=== PATIENT | male | born 1975 | race Caucasian/White ===

== ENCOUNTER 2016-09-21 23:21 | Emergency (ER) | payer OTHER ==
[~2016-09-21] VITALS: Ht 167.6 cm; Wt 81.1 kg
[2016-09-22 00:29] LABS: HEMOGLOBIN 17.7 g/dL (13.7-18.0)
[2016-09-22] MEDS ORDERED: SODIUM CHLORIDE 0.9% 1,000ML IVBOLUS ONE (00:30)
[2016-09-22] MEDS ORDERED: SODIUM CHLORIDE FLUSH 10ML SYR IVF ONE (00:30)
[2016-09-22 00:39] LABS: ASPARTATE AMINO TRANSFERASE 78 U/L (15-37); BLOOD UREA NITROGEN 7 mg/dL (7-18)
[2016-09-22 01:10] LABS: DAU SCREEN DISCLAIMER
[2016-09-22 02:20] VITALS: BP 130/75
== END 2016-09-22 02:24 | disposition home or self-care (01) ==
LOC: ED 23:59
DX: F10.229 Alcohol dependence with intoxication, unspecified (principal); K85.20 Alcohol induced acute pancreatitis without necrosis or infection; F14.10 Cocaine abuse, uncomplicated; F32.9 Major depressive disorder, single episode, unspecified; Y90.9 Presence of alcohol in blood, level not specified; Z79.899 Other long term (current) drug therapy
CPT/HCPCS: 36415; 80053; 80307; 81003; 83690; 83735; 84443; 85025; 96360; 99284; J7030

== ENCOUNTER 2018-12-17 15:39 | Inpatient (IN) | payer OTHER ==
[~2018-12-17] VITALS: Ht 167.6 cm; Wt 79.5 kg
[2018-12-17] MEDS ORDERED: ONDANSETRON ODT 4 MG PO ONE (16:00)
[2018-12-17 16:17] LABS: BASOPHILS # (AUTO) 0.03 x10^3/uL (0-0.1); BASOPHILS % (AUTO) 1 % (0-1); EOSINOPHILS # (AUTO) 0.02 x10^3/uL (0-0.4); EOSINOPHILS % (AUTO) 0 % (1-7); LYMPHOCYTES # (AUTO) 1.52 x10^3/uL (1-3.4); LYMPHOCYTES % (AUTO) 22 % (22-44); MD NO; MEAN CORPUSCULAR HEMOGLOBIN 34.8 pg (27.5-34.5); MEAN CORPUSCULAR HGB CONC 34.4 g/dL (33.2-36.2); MEAN CORPUSCULAR VOLUME 101.2 fL (81-97); MEAN PLATELET VOLUME 7.8 fL (7.4-10.4); MONOCYTES # (AUTO) 0.59 x10^3/uL (0.2-0.8); MONOCYTES % (AUTO) 9 % (2-9); NEUTROPHILS # (AUTO) 4.75 x10^3/uL (1.8-6.8); NEUTROPHILS % (AUTO) 69 % (42-75); PLATELET COUNT 141 x10^3/uL (130-400); RED BLOOD COUNT 5.48 x10^6/uL (4.38-5.82); RED CELL DISTRIBUTION WIDTH 13.1 % (9.4-14.8)
[2018-12-17 16:26] LABS: ALANINE AMINOTRANSFERASE 89 U/L (12-78); ANION GAP 14 mmol/L (5-15); CALCIUM 8.1 mg/dL (8.5-10.1); CHLORIDE 96 mmol/L (98-107); CREATININE 0.79 mg/dL (0.7-1.3)
[2018-12-17 16:30] LABS: ALKALINE PHOSPHATASE 121 U/L (45-117); BILIRUBIN,TOTAL 2.9 mg/dL (0.2-1.0); TOTAL PROTEIN 7.3 g/dL (6.4-8.2); TROPONIN I < 0.015 ng/mL (0.000-0.045)
--- NOTE | 2018-12-17 18:50 | NUR ---
PT TO ED FOR GENERAL WEAKNESS AND DECREASED APPETITE X 10 DAYS. PT STATES HE TRIED TO QUIT DRINKING BT THEN DRAK 3 BEERS TODAY IN AN UNSUCCESSFUL ATTEMPT TO INCREASE HIS APPETITE. PT CONNECTED TO MONITORS. VSS. PIT ORDERS RECEIVIED. LABS DRAWN. AWAITING RESULTS.
[2018-12-17] MEDS ORDERED: ONDANSETRON ODT 4 MG ONE (18:56)
--- NOTE | 2018-12-17 19:05 | NUR ---
PT UP SELF WITH STEADY GAIT TO FOR URINE SAMPLE. URINE COLLECTED AND SENT. VSS. PT RESTING IN ROOM. WARM BLANKET PROVIDED FOR COMFORT. AWAITING RESULTS.
[2018-12-17] MEDS ORDERED: SODIUM CHLORIDE 0.9% 1,000 ML IV ONE ×2 (19:22→21:00)
[2018-12-17 19:24] LABS: AMPHETAMINE SCREEN, URINE Negative (Negative); BARBITURATE SCREEN, URINE Negative (Negative); BENZODIAZEPINE SCREEN, URINE Negative (Negative); CANNABINOID SCREEN, URINE Negative (Negative); COCAINE SCREEN, URINE Negative (Negative); METHADONE SCREEN, URINE Negative (Negative); OPIATE SCREEN, URINE Negative (Negative)
[2018-12-17] MEDS ORDERED: SODIUM CHLORIDE FLUSH 10ML SYR IVF ONE (19:30)
[2018-12-17] MEDS ORDERED: LORazepam 2 MG/ML, 1ML IVPush ONE (19:30)
[2018-12-17] MEDS ORDERED: ONDANSETRON 2MG/ML, 2ML IVPush ONE (19:30)
[2018-12-17] MEDS ORDERED: SODIUM CHLORIDE 0.9% 1,000ML IVBOLUS ONE (19:30)
--- NOTE | 2018-12-17 19:32 | NUR ---
NEW ORDERS FOR MEDS AND IVF RECEIVED.
[2018-12-17] MEDS ORDERED: ONDANSETRON 2MG/ML, 2ML ONE (19:34)
[2018-12-17] MEDS ORDERED: LORazepam 2 MG/ML, 1ML ONE (19:35)
[2018-12-17 20:56] VITALS: BP 151/85
[2018-12-17] MEDS ORDERED: SODIUM CHLORIDE FLUSH 10ML SYR IVF PRN (21:00)
[2018-12-17] MEDS ORDERED: DIPHENHYDRAMINE 50 MG/ML, 1ML IV PRN (23:00)
[2018-12-17] MEDS ORDERED: LORazepam 2 MG/ML, 1ML IV PRN ×5 (23:00)
[2018-12-17] MEDS ORDERED: LORazepam 1MG TABLET PO PRN ×4 (23:00)
[2018-12-17] MEDS ORDERED: THIAMINE 200 MG in DEXTROSE 5% 50 ML IVPB ONE (23:00)
[2018-12-17] MEDS ORDERED: PROMETHAZINE 25MG TABLET PO PRN (23:00)
[2018-12-17] MEDS ORDERED: FOLIC ACID 5 MG/ML IM ONE (23:00)
[2018-12-17] MEDS ORDERED: ACETAMINOPHEN 325 MG TABLET PO PRN (23:00)
[2018-12-17] MEDS ORDERED: LABETALOL 5MG/ML, 20ML IVPush PRN (23:00)
[2018-12-17] MEDS ORDERED: ONDANSETRON 2MG/ML, 2ML IVPush PRN (23:00)
[2018-12-17] MEDS ORDERED: morphine SULFATE 10 MG/ML, 1ML IVPush PRN (23:00)
[2018-12-17 23:24] LABS: INTERNATIONAL NORMALIZED RATIO 1.02 (0.93-1.1); PROTHROMBIN TIME 10.7 Seconds (9.6-11.5)
[2018-12-17] MEDS ORDERED: FOLIC ACID 1 MG TABLET PO ONE (23:45)
[2018-12-17] MEDS: ENOXAPARIN 40 MG/0.4 ML SQ SCH (23:46)
[2018-12-17] MEDS: NS + 20MEQ KCL 1,000 ML IV SCH (23:46)
[2018-12-18 02:27] VITALS: BP 157/91
[2018-12-18 05:15] LABS: ALANINE AMINOTRANSFERASE 82 U/L (12-78); ALBUMIN 3.6 g/dL (3.4-5.0); ANION GAP 9 mmol/L (5-15); CALCIUM 8.2 mg/dL (8.5-10.1); CHLORIDE 102 mmol/L (98-107); CREATININE 0.79 mg/dL (0.7-1.3)
[2018-12-18 05:17] LABS: ALKALINE PHOSPHATASE 104 U/L (45-117); BILIRUBIN,TOTAL 4.7 mg/dL (0.2-1.0); TOTAL PROTEIN 6.2 g/dL (6.4-8.2)
[2018-12-18 05:21] LABS: BASOPHILS # (AUTO) 0.04 x10^3/uL (0-0.1); BASOPHILS % (AUTO) 1 % (0-1); EOSINOPHILS # (AUTO) 0.06 x10^3/uL (0-0.4); EOSINOPHILS % (AUTO) 1 % (1-7); LYMPHOCYTES # (AUTO) 1.46 x10^3/uL (1-3.4); LYMPHOCYTES % (AUTO) 22 % (22-44); MD NO; MEAN CORPUSCULAR HEMOGLOBIN 35.8 pg (27.5-34.5); MEAN CORPUSCULAR VOLUME 102.1 fL (81-97); MEAN PLATELET VOLUME 8.5 fL (7.4-10.4); MONOCYTES % (AUTO) 7 % (2-9); NEUTROPHILS # (AUTO) 4.64 x10^3/uL (1.8-6.8); NEUTROPHILS % (AUTO) 69 % (42-75); PLATELET COUNT 114 x10^3/uL (130-400); RED BLOOD COUNT 4.98 x10^6/uL (4.38-5.82); RED CELL DISTRIBUTION WIDTH 13.1 % (9.4-14.8)
[2018-12-18] MEDS: NS + 20MEQ KCL 1,000 ML IV SCH ×3 (06:40→21:52)
[2018-12-18 06:44] VITALS: BP 153/99
[2018-12-18] MEDS: MULTIVITAMINS/MINERALS TABLET PO SCH (08:30)
[2018-12-18] MEDS: LORazepam 0.5MG TABLET PO PRN ×3 (09:11→21:16)
[2018-12-18 12:04] VITALS: BP 159/87
[2018-12-18 18:51] VITALS: BP 143/80
[2018-12-18] MEDS: ENOXAPARIN 40 MG/0.4 ML SQ SCH (23:08)
[2018-12-19 02:10] VITALS: BP 148/85
[2018-12-19 04:40] LABS: ALANINE AMINOTRANSFERASE 71 U/L (12-78); ALBUMIN 3.6 g/dL (3.4-5.0); ANION GAP 9 mmol/L (5-15); CALCIUM 8.5 mg/dL (8.5-10.1); CHLORIDE 102 mmol/L (98-107)
[2018-12-19 04:43] LABS: ALKALINE PHOSPHATASE 100 U/L (45-117); BILIRUBIN,TOTAL 3.2 mg/dL (0.2-1.0); CREATININE 0.68 mg/dL (0.7-1.3); TOTAL PROTEIN 6.5 g/dL (6.4-8.2)
[2018-12-19] MEDS: NS + 20MEQ KCL 1,000 ML IV SCH (04:45)
[2018-12-19 06:33] VITALS: BP 159/92
[2018-12-19] MEDS ORDERED: THIAMINE 100 MG in DEXTROSE 5% 50 ML IVPB SCH (09:00)
[2018-12-19] MEDS: MULTIVITAMINS/MINERALS TABLET PO SCH (09:52)
[2018-12-19] MEDS ORDERED: THIA100T67 PO (11:26)
[2018-12-19] MEDS ORDERED: FOLI-17 PO (11:26)
[2018-12-19] MEDS ORDERED: MAGN400T26 PO (11:26)
[2018-12-19] MEDS ORDERED: MULT-484 PO (11:26)
[2018-12-19] MEDS ORDERED: PREG100C PO (11:29)
[2018-12-19] MEDS ORDERED: TRAM-47 PO (11:29)
[2018-12-19] MEDS ORDERED: ONDA4TAB13 SL (11:29)
[2018-12-19 12:09] VITALS: BP 144/85
== END 2018-12-19 17:05 | disposition home or self-care (01) | DRG 432 ==
LOC: ED 19:55 → EDIP 20:00 → 4EST 20:51 → DCLOUNGE 12-19 16:52
PROVIDERS: ADMIT Family Medicine; ATTEND Internal Medicine
DX: K70.10 Alcoholic hepatitis without ascites (principal); K85.20 Alcohol induced acute pancreatitis without necrosis or infection; E87.1 Hypo-osmolality and hyponatremia; F10.239 Alcohol dependence with withdrawal, unspecified; D75.1 Secondary polycythemia; D75.89 Other specified diseases of blood and blood-forming organs; E86.0 Dehydration; E87.6 Hypokalemia; F10.229 Alcohol dependence with intoxication, unspecified; F17.200 Nicotine dependence, unspecified, uncomplicated; K76.0 Fatty (change of) liver, not elsewhere classified
CPT/HCPCS: 36415; 71046; 76700; 80053; 80074; 80307; 82607; 82962; 83690; 83735; 84100; 84484; 85025; 85610; 93005; 96374; 99285; G0378; J1650; J2405; J3411; J3480; Q0162; J2060; J7030

== ENCOUNTER 2018-12-19 22:56 | Emergency (ER) | payer SELFPAY ==
[~2018-12-19] VITALS: Ht 165.1 cm; Wt 82.0 kg
[~2018-12-19 22:56] MED LIST: FOLI-17 PO; MAGN400T26 PO; MULT-484 PO; ONDA4TAB13 SL; PREG100C PO; THIA100T67 PO; TRAM-47 PO
[2018-12-19] MEDS ORDERED: FAMOTIDINE 20 MG TABLET ONE (23:17)
[2018-12-19] MEDS ORDERED: MAALOX/HYOSCYAMINE/LIDOCAINE 45 ML BTL ONE (23:17)
[2018-12-19] MEDS ORDERED: ONDANSETRON ODT 4 MG ONE (23:17)
[2018-12-19] MEDS ORDERED: MAALOX/HYOSCYAMINE/LIDOCAINE 45 ML BTL PO ONE (23:30)
[2018-12-19] MEDS ORDERED: ONDANSETRON ODT 4 MG PO ONE (23:30)
[2018-12-19] MEDS ORDERED: FAMOTIDINE 20 MG TABLET PO ONE (23:30)
[2018-12-19 23:40] LABS: BASOPHILS # (AUTO) 0.03 x10^3/uL (0-0.1); BASOPHILS % (AUTO) 0 % (0-1); EOSINOPHILS # (AUTO) 0.08 x10^3/uL (0-0.4); EOSINOPHILS % (AUTO) 1 % (1-7); LYMPHOCYTES # (AUTO) 1.83 x10^3/uL (1-3.4); LYMPHOCYTES % (AUTO) 23 % (22-44); MD NO; MEAN CORPUSCULAR HEMOGLOBIN 35.8 pg (27.5-34.5); MEAN CORPUSCULAR HGB CONC 34.6 g/dL (33.2-36.2); MEAN CORPUSCULAR VOLUME 103.6 fL (81-97); MEAN PLATELET VOLUME 8.9 fL (7.4-10.4); MONOCYTES # (AUTO) 0.52 x10^3/uL (0.2-0.8); MONOCYTES % (AUTO) 7 % (2-9); NEUTROPHILS # (AUTO) 5.47 x10^3/uL (1.8-6.8); NEUTROPHILS % (AUTO) 69 % (42-75); PLATELET COUNT 104 x10^3/uL (130-400); RED CELL DISTRIBUTION WIDTH 13.1 % (9.4-14.8)
[2018-12-19 23:52] LABS: ALANINE AMINOTRANSFERASE 73 U/L (12-78); ALBUMIN 3.7 g/dL (3.4-5.0); ANION GAP 10 mmol/L (5-15); CHLORIDE 100 mmol/L (98-107); CREATININE 0.65 mg/dL (0.7-1.3)
[2018-12-19 23:54] LABS: ALKALINE PHOSPHATASE 88 U/L (45-117); BILIRUBIN,TOTAL 2.1 mg/dL (0.2-1.0); TOTAL PROTEIN 7.2 g/dL (6.4-8.2)
--- NOTE | 2018-12-20 00:24 | NUR ---
Discharge instructions discussed with patient including when to return to emergency department, patient verbalizes understanding. Prescriptions provided to patient with instruction for use, patient verbalizes understanding. Patient appears tired, cab voucher provided for transportation home. Patient ambulates with a steady gait.
[2018-12-20 00:25] VITALS: BP 138/84
== END 2018-12-20 00:27 | disposition home or self-care (01) ==
LOC: ED 12-20 00:03
DX: K85.20 Alcohol induced acute pancreatitis without necrosis or infection (principal); R10.13 Epigastric pain
CPT/HCPCS: 36415; 80053; 83690; 85025; 99284; Q0162